=== PATIENT | female | born 1985 | race Caucasian/White ===

== ENCOUNTER 2021-07-30 20:27 | Outpatient (CLI) | payer MEDICAID | END 2021-07-30 20:28 | disposition critical access hospital (66) | LOC: EMS 20:27 | DX: R20.0 Anesthesia of skin (principal); R07.89 Other chest pain | CPT/HCPCS: A0425; A0427; A0999 ==

== ENCOUNTER 2021-07-30 20:47 | Emergency (ER) | payer MEDICAID ==
[2021-07-30] MEDS ORDERED: LORazepam 2 MG/ML VIAL IVP STA (21:01)
[2021-07-30] MEDS ORDERED: SODIUM CHLORIDE 0.9% 1,000 ML IV STA (21:02)
[2021-07-30 21:29] LABS: BASOPHILS % (AUTO) 0.7 %; EOSINOPHILS # (AUTO) 0.3 10^3/uL (0.0-0.7); EOSINOPHILS % (AUTO) 6.1 %; HGB - HEMOGLOBIN 12.4 g/dL (12.0-16.0); LYMPHOCYTES # (AUTO) 2.1 10^3/uL (1.5-3.5); MEAN CORPUSCULAR HEMOGLOBIN 30.7 pg (27.0-31.0); MEAN CORPUSCULAR HGB CONC 35.4 g/dL (32.0-36.0); MEAN CORPUSCULAR VOLUME 86.6 fL (81.0-99.0); MEAN PLATELET VOLUME 9.8 fL (7.9-10.8); MONOCYTES # (AUTO) 0.3 10^3/uL (0.0-1.0); MONOCYTES % (AUTO) 7.6 %; NEUTROPHILS # (AUTO) 1.7 10^3/uL (1.5-6.6); NEUTROPHILS % (AUTO) 37.6 %; PLT - PLATELET COUNT 260 10^3/uL (130-450); RED BLOOD COUNT 4.04 10^6/uL (4.20-5.40); RED CELL DISTRIBUTION WIDTH 11.9 % (12.0-15.0); WHITE BLOOD COUNT 4.5 x10^3/uL (4.8-10.8)
[2021-07-30] MEDS ORDERED: IOPAMIDOL-300 100 ML VIAL ONE (21:33)
--- NOTE | 2021-07-30 21:47 | XRAY Report ---
PROCEDURE: Chest 1 View X-Ray INDICATIONS: Chest Pain TECHNIQUE: One view of the chest was acquired. COMPARISON: None. FINDINGS: Surgical changes and devices: None. Lungs and pleura: The lateral costophrenic angles are incompletely included on the current study. No definite pleural effusions or pneumothorax. There is mild pulmonary vascular prominence in the lung b ases. No focal consolidation. Mediastinum: Mediastinal contours appear normal. Heart size is normal. Bones and chest wall: No suspicious bony lesions. Overlying soft tissues appear unremarkable. IMPRESSION: 1. Mild pulmonary vascular prominence of the lung bases suggestive of mild nonspecific edema which ma y be due to cardiogenic or noncardiogenic etiologies such as atypical pneumonia or inhalational expos ures. Reviewed by: Maycol Monson MD on 07/30/2021 9:46 PM PST Approved by: Maycol Monson MD on 07/30/2021 9:46 PM [facility] Station ID: [id number]
[2021-07-30 21:53] LABS: HCG,QUALITATIVE BLOOD NEGATIVE
[2021-07-30 22:02] LABS: ALBUMIN 4.3 g/dL (3.2-5.5); ALBUMIN/GLOBULIN RATIO 1.4 (1.0-2.2); BILIRUBIN,TOTAL 1.3 mg/dL (0.2-1.0); CALCIUM 8.9 mg/dL (8.5-10.3); CREATININE 0.6 mg/dL (0.4-1.0); POTASSIUM 2.7 mmol/L (3.5-5.0); TOTAL PROTEIN 7.4 g/dL (6.7-8.2)
--- NOTE | 2021-07-30 22:19 | ED Physician Documentation ---
PD HPI CHEST PAIN - Stated complaint Stated Complaint: CHEST TIGHTNESS - Chief complaint Chief Complaint: Cardiac - History obtained from History obtained from: Patient, EMS - History of Present Illness Timing - onset: How many hours ago (1), Today Timing - duration: Hours (1) Timing - details: Abrupt onset, Still present (starting to feel less pain in chest, and spasms lessening, but still feeling numbness both arms and around mouth.) Quality: Aching, Sharp, Stabbing, Pain Location: Substernal Radiation: Back Worsened by: Inspiration. No: Movement, Palpation Associated symptoms: Shortness of air, Feeling faint / dizzy, Other (numbness and then spasms both arms/hands and around mouth.) Similar symptoms before: Diagnosis (has history of anxiety but has not had symptoms like this nor hyperventilation in the past.) Recently seen: Not recently seen Review of Systems Constitutional: denies: Fever, Chills Nose: denies: Rhinorrhea / runny nose, Congestion Throat: denies: Sore throat Cardiac: reports: Chest pain / pressure. denies: Palpitations, Pedal edema Respiratory: reports: Dyspnea. denies: Cough, Wheezing GI: reports: Abdominal Pain (for several weeks or more, pelvic pain.), Nausea. denies: Vomiting, Diarrhea : denies: Dysuria, Frequency Skin: denies: Rash, Lesions Musculoskeletal: reports: Neck pain (mid cervical area hurts with ROM.), Back pain (for several weeks, along with pelvic pain and is being scheduled for pemvlic MRI through PMD/[employer].) Neurologic: reports: Near syncope (feeling ightheaded with the pain and dyspnea.). denies: Focal weakness, Headache PD PAST MEDICAL HISTORY - Past Medical History Past Medical History: Yes Cardiovascular: None Respiratory: None Endocrine/Autoimmune: None GI: None Psych: Anxiety Musculoskeletal: Osteoarthritis - Past Surgical History Past Surgical History: No - Present Medications Home Medications: Ambulatory Orders Medication Instructions Recorded Confirmed Ibuprofen 600 mg PO TID #20 tablet 05/22/15 09/01/15 Doxylamine/Pyridoxine HCl 1 each PO Q6H PRN #20 tablet. 09/01/15 [Carlota Angel 10-10 mg Tablet] Vitamin [Trinatal Rx 1] 1 each PO DAILY #90 tablet 09/01/15 - Allergies Allergies/Adverse Reactions: Allergies Allergy/AdvReac Type Severity Reaction Status Date / Time No Known Drug Allergies Allergy Verified 07/30/21 20:53 - Living Situation Living Arrangement: reports: At home - Social History Does the pt smoke?: Yes Smoking Status: Current every day smoker Does the pt drink ETOH?: No Does the pt have substance abuse?: No - Family History Family history: denies: Venous thromboembolism, Aortic aneursym, Aortic dissection - Immunizations Immunizations are current?: Yes - POLST Patient has POLST: No PD ED PE NORMAL - Vitals Vital signs reviewed: Yes - General General: Alert and oriented X 3, Well developed/nourished, Other (appears anxious. Some deeper thought not very rapid breathing. Having spasms of fingers/hands. ) - HEENT HEENT: Pharynx benign - Neck Neck: Supple, no meningeal sign, No bony TTP, No adenopathy - Cardiac Cardiac: RRR, No murmur - Respiratory Respiratory: Clear bilaterally - Abdomen Abdomen: Soft, Non tender - Derm Derm: Normal color, Warm and dry - Extremities Extremities: Normal ROM s pain, No edema, No calf tenderness / cord - Neuro Neuro: Alert and oriented X 3, No motor deficit, Normal speech Results - Vitals Vitals: Vital Signs - 24 hr 07/30/21 07/30/21 07/30/21 20:53 21:12 22:37 Temperature 37.2 C 37 C Heart Rate 99 75 73 Respiratory 20 14 12 Rate Blood Pressure 159/88 H 147/74 H 121/66 O2 Saturation 99 100 100 07/30/21 23:24 Temperature 37 C Heart Rate 71 Respiratory 13 Rate Blood Pressure 110/65 O2 Saturation 99 Oxygen O2 Source Room air - EKG (time done) 20:56 Rate: Rate (enter#) (88) Rhythm: NSR Juliette: Normal Intervals: Normal NC QRS: Normal Ischemia: Normal ST segments. No: ST elevation c/w ischemia, ST depression - Labs Labs: Laboratory Tests 07/30/21 07/30/21 07/30/21 21:21 21:21 21:21 WBC 4.5 L RBC 4.04 L Hgb 12.4 Hct 35.0 L MCV 86.6 MCH 30.7 MCHC 35.4 RDW 11.9 L Plt Count 260 MPV 9.8 Neut # (Auto) 1.7 Lymph # (Auto) 2.1 [place] # (Auto) 0.3 Eos # (Auto) 0.3 Baso # (Auto) 0.0 Absolute Nucleated RBC 0.00 Nucleated RBC % 0.0 Sodium 139 Potassium 2.7 L Chloride 103 Carbon Dioxide 21 Anion Gap 15.0 H BUN 9 Creatinine 0.6 Estimated GFR (MDRD) 113 Glucose 105 H Calcium 8.9 Magnesium 2.0 Total Bilirubin 1.3 H AST 19 ALT 13 Alkaline Phosphatase 46 Troponin I High Sens < 2.3 L Total Protein 7.4 Albumin 4.3 Globulin 3.1 Albumin/Globulin Ratio 1.4 Lipase 19 L Serum HCG, Qual 07/30/21 21:21 WBC RBC Hgb Hct MCV MCH MCHC RDW Plt Count MPV Neut # (Auto) Lymph # (Auto) [place] # (Auto) Eos # (Auto) Baso # (Auto) Absolute Nucleated RBC Nucleated RBC % Sodium Potassium Chloride Carbon Dioxide Anion Gap BUN Creatinine Estimated GFR (MDRD) Glucose Calcium Magnesium Total Bilirubin AST ALT Alkaline Phosphatase Troponin I High Sens Total Protein Albumin Globulin Albumin/Globulin Ratio Lipase Serum HCG, Qual NEGATIVE - Rads (name of study) chest xray Radiology: Prelim report reviewed (no acute process), See rad report cervical spine Radiology: Prelim report reviewed (no acute process), See rad report chest CT-A Radiology: Prelim report reviewed (no PEs, normal aorta, no acute lung process. ), See rad report PD MEDICAL DECISION MAKING - ED course Complexity details: reviewed results, re-evaluated patient, considered differential (hyperventilation symptoms but initiated with sharp, pleuritic, chest to back pain and neck pain. Consider cervical process with arm numbness, and chest vascular process with chest pain and arm numbness. ), d/w patient Departure - Departure Disposition: 01 Home, Self Care Clinical Impression: Hyperventilation, Hypokalemia Chest pain Qualifiers: Chest pain type: precordial pain Qualified Code(s): R07.2 - Precordial pain Condition: Stable Record reviewed to determine appropriate education?: Yes Instructions: ED Chest Pain Atypical Unkn Cause, ED Diet High Potassium Comments: It is unclear the cause of the chest pain that you had. Your blood tests and scans do not show any signs of significant process. In particular no signs of collapsed lung, pneumonia, aortic dissection or aneurysm, blood clots, neck spine abnormality or heart attack. I presume some musculoskeletal pain in the chest. The numbness and spasms in her hand more contributed to by a low potassium level and then also hyperventilating as a response to the pain. Tylenol ibuprofen if needed for pains. Add a high potassium diet over the next several days to week. I would anticipate improvement into tomorrow. Discharge Date/Time: 07/30/21 23:38
[2021-07-30] MEDS ORDERED: POTASSIUM CHLORIDE 20 MEQ TABLET PO STA (22:22)
[2021-07-30] MEDS ORDERED: IOPAMIDOL-300 100 ML VIAL IVP ONE (22:24)
--- NOTE | 2021-07-30 22:37 | CT Report ---
PROCEDURE: CERVICAL SPINE WO INDICATIONS: neck pain, recent twist injury; numbness both arms TECHNIQUE: Noncontrast 3 mm thick sections acquired from the skull base to the T4 level. Sagittal and coronal r eformats were then constructed. For radiation dose reduction, the following was used: automated exp osure control, adjustment of mA and/or kV according to patient size. COMPARISON: None. FINDINGS: Image quality: Excellent. Bones: No fractures or dislocations. Visualized superior ribs are intact. Soft tissues: Prevertebral soft tissues are normal in thickness. No paravertebral hematomas. No ap ical pneumothoraces. IMPRESSION: No acute osseous abnormality. Reviewed by: Bradley Bullock MD on 07/30/2021 10:36 PM PST Approved by: Bradley Bullock MD on 07/30/2021 10:36 PM PST Station ID: [id number]
--- NOTE | 2021-07-30 22:48 | CT Report ---
PROCEDURE: ANGIO CHEST W/WO INDICATIONS: chest pain and numbness both arms CONTRAST: IV CONTRAST: Isovue 300 ml: 80 PO CONTRAST: *NO PO CONTRAST TECHNIQUE: After the administration of intravenous contrast, 2 mm axial images were acquired from the pulmonary apices to the posterior costophrenic angles during the arterial phase. In addition, 1 mm lung kernel and 5 mm soft tissue kernel reconstructions were performed. 3-dimensional coronal oblique maximum int ensity projection (MIP) reformats, 8 mm axial MIP, and 5 mm coronal and sagittal MPR reformats were t hen performed through the thorax. For radiation dose reduction, the following was used: automated exp osure control, adjustment of mA and/or kV according to patient size. COMPARISON: None. FINDINGS: Image quality: Excellent. Pulmonary arteries: Pulmonary arteries are normal in size, and demonstrate no intraluminal filling d efects to suggest pulmonary embolism. No aortic dissection. Lungs and pleura: A few small pulmonary nodules. For example: -Left upper lobe medial subpleural 0.4 cm, (7/104). -Lingula pulmonary nodule 0.6 cm, (7/185). -Right lower lobe subpleural 0.4 cm, (7/208). -A few calcified granulomas. Bibasal atelectasis. Small area of groundglass opacity in the left upper lobe likely atelectasis. No pleural effusions or pneumothorax. Central and peripheral airways are patent. Mediastinum: Heart size is normal, without pericardial effusion. No mediastinal or hilar adenopathy . Thoracic aorta is normal in caliber and enhancement. Great vessels are unremarkable. Esophagus is normal in caliber, without hiatal hernia. Bones and chest wall: No suspicious bony lesions. Ribs and thoracic spine appear intact throughout. No axillary or supraclavicular adenopathy. The thyroid is normal in size and there are no incident al findings. Abdomen: Visualized upper abdominal solid organs appear normal in the early arterial phase of enhanc ement. Several gallstones. IMPRESSION: 1. No pulmonary embolism. No aortic dissection. 2. Small areas of suspected atelectasis. 3. A few small pulmonary nodules. Largest in the lingula measuring 0.6 cm. -Recommend follow-up CT chest in 6-12 months. 4. Gallstones. Reviewed by: Bradley Bullock MD on 07/30/2021 10:47 PM PST Approved by: Bradley Bullock MD on 07/30/2021 10:47 PM PST Station ID: [id number]
[2021-07-30 23:26] VITALS: BP 110/65
== END 2021-07-30 23:38 | disposition home or self-care (01) ==
LOC: EDUNIT# → ED 20:47
DX: R06.4 Hyperventilation (principal); E87.6 Hypokalemia; R07.2 Precordial pain; M54.2 Cervicalgia
CPT/HCPCS: 36415; 71045; 71275; 72125; 80053; 83690; 83735; 84484; 84703; 85025; 93005; 96374; 99283; 99284; A9270; J2060; Q9967